=== PATIENT | male | born 1970 | race Caucasian/White ===

== ENCOUNTER 2017-11-27 12:38 | Emergency (ER) | payer OTHER ==
[~2017-11-27] VITALS: Ht 177.8 cm; Wt 74.8 kg
[2017-11-27 12:42] VITALS: BP 134/74
[2017-11-27] MEDS ORDERED: CEPHALEXIN MONOHYDRATE 500 MG CAPSULE PO ONE (13:02)
[2017-11-27] MEDS ORDERED: HYDROCODONE/APAP 5/325MG 1 EACH TABLET ONE (13:02)
[2017-11-27] MEDS ORDERED: IBUPROFEN 600 MG TABLET PO ONE (13:02)
[2017-11-27] MEDS: CEPHALEXIN MONOHYDRATE 500 MG CAPSULE PO ONE (13:04)
[2017-11-27] MEDS: IBUPROFEN 600 MG TABLET PO ONE (13:04)
[2017-11-27] MEDS: HYDROCODONE/APAP 5/325MG 1 EACH TABLET PO ONE (13:05)
== END 2017-11-27 13:22 | disposition home or self-care (01) ==
LOC: ER 12:40
DX: L03.011 Cellulitis of right finger (principal); Z95.0 Presence of cardiac pacemaker
CPT/HCPCS: A4606; Z7610